=== PATIENT | male | born 1945 | race Hispanic/Latino ===

== ENCOUNTER 2019-08-09 09:40 | Outpatient (CLI) | payer MEDICARE ==
--- NOTE | 2019-08-09 10:54 | ULT ---
US Gallbladder RUQ: 08/09/2019 12:00 AM CLINICAL HISTORY: Right upper quadrant abdominal pain. STUDY: Limited right upper quadrant ultrasound of abdomen. COMPARISON: None. FINDINGS: Liver: Size: Normal. Echogenicity: Normal. Contour: Smooth. Mass: None. Bile ducts: No intrahepatic or extrahepatic biliary dilatation. Common bile duct measures 5 mm. Gallbladder: Sludge and nonshadowing stones. No gallbladder wall thickening. Pancreas: Head, body, and tail appear normal. Right kidney: No pelvicalyceal dilatation. Right kidney measuring 11.6 cm in length. Multiple cysts i n the right kidney measuring up to 1.9 cm in size. IMPRESSION: 1. Cholelithiasis and gallbladder sludge 2. Right renal cysts
== END 2019-08-09 09:41 | disposition home or self-care (01) ==
LOC: SCSULT 09:40
PROVIDERS: ATTEND Internal Medicine Gastroenterology
DX: K21.9 Gastro-esophageal reflux disease without esophagitis (principal); R10.10 Upper abdominal pain, unspecified; B96.81 Helicobacter pylori [H. pylori] as the cause of diseases classified elsewhere; Z86.010 Personal history of colon polyps; K80.20 Calculus of gallbladder without cholecystitis without obstruction; N28.1 Cyst of kidney, acquired; K82.8 Other specified diseases of gallbladder
CPT/HCPCS: 76705